=== PATIENT | male | born 1970 | race Caucasian/White ===

== ENCOUNTER 2021-12-09 13:15 | Emergency (ER) | payer OTHER, BC, SELFPAY ==
[2021-12-09 13:16] VITALS: BP 136/85; PULSE 73; RESP 16; TEMP 36.4; O2SAT 100; BMI 43.7
--- NOTE | 2021-12-09 13:46 | RAD_ITS ---
STUDY: X-RAY - RIGHT FOOT CLINICAL: Lateral right foot pain, twisting injury, history of previous right foot fracture. TECHNIQUE: 3 view(s) of the foot. COMPARISON: None. FINDINGS: There is a plantar calcaneal enthesophyte. Otherwise, unremarkable talus, calcaneus, and tarsal bones. Normal visualized subtalar, talonavicular, calcaneocuboid, tarsal and tarsometatarsal articulations. There is a small exostosis at the plantar aspect of the distal fifth metatarsal diaphysis. Normal metatarsophalangeal joint of the great toe. There are bipartite tibial and fibular sesamoid bones. Normal interphalangeal joint of the great toe. Normal phalanges of the great toe. Normal second through fifth metatarsophalangeal joints. There is healed fracture deformity of the base of the fifth proximal phalanx. The soft tissue structures are unremarkable. RAD/Foot min 3 Views IMPRESSION: Healed fracture deformity of the fifth proximal phalanx. Small exostosis of the fifth metatarsal. Plantar calcaneal enthesophyte. Electronically Signed: Jovani Thakkar MD at 14:30 EDT ,
--- NOTE | 2021-12-09 14:29 | ED.VIS.LOWEX ---
HPI History of Present Illness HPI Narrative: Patient presents with right foot pain that began yesterday while he was at work. Patient states he was twisting and his foot remained in place. Patient states the pain is a constant dull but sharp at times. Patient states it is worse with weightbearing and better with rest. Patient states he has a prior fracture of the fifth metatarsal in his right foot. Patient denies any paresthesias or weakness. Patient denies any radiation of the pain. Chief Complaint: Lower Extremity Injury Informant: patient Occured/Mechanism Mechanism/Context: Yes work related Comment: Twisting injury Onset/Context/Timing Onset: Yesterday Context: Sudden Onset Timing: Continuous Quality of Pain: Sharp and Aching Location: Right foot Worsened by: Weightbearing, ambulation Relieved by: Rest Associated Symptoms Associated Symptoms: Negative for Parasthesia, Weakness or Loss of Funtion PFSH PFSH Home Medications NK 12/09/21 [History Last Taken Unknown] Allergy/AdvReac Type Severity Reaction Status Date / Time No Known Allergies Allergy Verified 12/09/21 13:18 Surgical History (Updated 12/09/21 @ 13:59 by Blanca Gerber) H/O hernia repair Social History Smoking Status: Never smoker ROS ROS ED Constitutional Constitutional ED: Denies chills or fever(s) Eyes Eyes: Denies blurry vision or change in vision ENT ENT ED: Denies rhinorrhea or sore throat Cardiovascular Cardiovascular: Denies chest pain or palpitations Respiratory/Chest Respiratory/Chest: Denies cough or dyspnea Gastrointestinal Gastrointestinal: Denies nausea or vomiting Genitourinary Genitourinary ED: Denies dysuria or hematuria Musculoskeletal Musculoskeletal: Denies back pain or neck pain Integumentary Denies abscess or rash Neurologic Neurologic: Denies headache(s) or weakness Allergic/Immunologic Allergic/Immunologic ED: Denies mouth swelling or urticaria EXAM Physical Exam Const Vital Signs: 12/09/21 13:16 12/09/21 15:09 Temperature 97.6 F L Temperature Source Temporal Pulse Rate 73 77 Respiratory Rate 16 17 Blood Pressure 136/85 H Blood Pressure Mean 102 Pulse Ox 100 98 Oxygen Delivery Method Room Air Positive well nourished, well developed and obese General Appearance ED: well developed and NAD Nutritional Appearance: obese HEENT Reports moist mucous membranes Neck full ROM Extremity Extremity Narrative: There is tenderness over the base of the fifth metatarsal. There is some mild edema. There is no ecchymosis. There is no bony crepitance or step-off. There is no deformity. There is mild tenderness over the lateral malleolus. There is no tenderness over the proximal fibula. Range of motion was slightly limited in all motions of the right foot injury to pain. Pedal pulses are equal bilaterally. Sensation is intact to light touch in all digits. Capillary refill was less than 2 seconds in all digits. Neuro oriented x3, CN's II-XII intact bilaterally, moves all extremities and no sensory deficits noted Sensorium / Orientation: alert Motor Exam: strength 5/5 throughout Psych mental status grossly normal MDM MDM MDM Narrative Medical decision making narrative: X-rays of the right foot were obtained. There are 3 views. On my interpretation, there is no acute fracture. There is no dislocation. There is no soft tissue swelling. There is an old healed fracture of the fifth proximal phalanx. Radiologist also interpreted the x-rays and agrees. Patient was advised of the various findings. Patient was instructed to ice and elevate the right foot. Patient was given restrictions for work. Patient was instructed to follow-up with his primary care physician or the [facility] in 5 to 7 days. Patient was instructed to take Tylenol or ibuprofen as needed for pain. Patient understood and was agreeable with the plan. All questions were answered. Radiography Diagnostic Testing: Clinical Impression(s) from Imaging Studies Foot X-Ray 12/09/21 13:46 IMPRESSION: Healed fracture deformity of the fifth proximal phalanx. Small exostosis of the fifth metatarsal. Plantar calcaneal enthesophyte. Electronically Signed: Jovani Thakkar MD at 14:30 EDT , Discharge Plan Triage Chief Complaint: Lower Extremity Injury ED Provider: Joseph Diaz Dx/Rx/DC Orders Clinical Impression: Right foot sprain Instructions: ED Foot Sprain Prescriptions: No Action NK Primary Care Provider: Care Physician,No Primary Referrals: Care Physician,No Primary [Primary Care Provider] - [facility] [NON-STAFF] - 5-7 Days Disposition Disposition: Home, Self Care Discharge Date/Time: 12/09/21 15:10
[2021-12-09 15:09] VITALS: PULSE 77; RESP 17; O2SAT 98
== END 2021-12-09 15:10 | disposition home or self-care (01) ==
PROVIDERS: Emergency Provider Emergency Medicine; Visit Provider Emergency Medicine
DX: S93.601A Unspecified sprain of right foot, initial encounter (principal); X50.1XXA Overexertion from prolonged static or awkward postures, initial encounter
CPT/HCPCS: 73630; 99283